=== PATIENT | female | born 1945 | race Caucasian/White ===

== ENCOUNTER 2021-09-08 13:06 | Outpatient (CLI) | payer MEDICARE, SELFPAY ==
--- NOTE | 2021-09-08 08:01 | OP_ITS ---
OPERATIVE PROCEDURE YAG laser capsulotomy, right and left eye. ? PREOP DIAGNOSIS Opacified lens capsule, right and left eye, respectively. POSTOP DIAGNOSIS Opacified lens capsule, right and left eye, respectively. ?Repaired. ? INDICATIONS FOR SURGERY The patient had experienced a painless, progressive loss of vision in both eyes over the past several years. ?It was interfering with her reading, driving, and day-to-day activities. ?For that reason, she was interested in trying to improve her visual and functional status. ?The risks, benefits, alternatives were outlined. ?The patient understands and accepts and elects to proceed with surgical repair. OPERATIVE PROCEDURE In the PAR area, both pupils were dilated with 1% Mydriacyl, topical anesthetic applied to the corneal surface. ?She was then brought to YAG laser room, where the eyes received topical anesthetic, and lens was placed on the right eye. ?A standard cruciform capsulotomy was performed utilizing 47 pulses at 2.2 mJ. ?The same procedure was carried out of the left eye utilizing 67 pulses at 2.2 mJ. ?The patient was then discharged in good condition having tolerated the procedure well.
[2021-09-08] MEDS: TETRACAINE 0.5% OPHTH 1 DROP EYE-BOTH ×3 (13:30→14:03)
[2021-09-08] MEDS: BRIMONIDINE TARTRATE 0.2% OPHTH 1 DROP EYE-BOTH ×2 (13:32→14:15)
[2021-09-08 13:40] VITALS: BP 135/78; PULSE 73; RESP 16; O2SAT 98
== END 2021-09-08 14:17 | disposition home or self-care (01) ==
LOC: EYE PRC 13:10
PROVIDERS: PCP Family Medicine; Visit Provider Ophthalmology
DX: H26.9 Unspecified cataract (principal)
CPT/HCPCS: 66821; A9270